=== PATIENT | male | born 1975 | race Caucasian/White ===

== ENCOUNTER 2018-01-04 09:09 | Inpatient (IN) | payer OTHER ==
[~2018-01-04] VITALS: Ht 182.9 cm; Wt 80.7 kg
[2018-01-04 11:00] VITALS: BP 130/70
--- NOTE | 2018-01-04 11:00 | NUR ---
INTAKE ASSESSMENT Patient is alert awake oriented x4. Patient admitted for Cocaine/ETOH(WHISKEY) withdrawal. Patient is main source of information. Vital signs WNL, B/P-130/70,HR-103,RR-18, SPO2-98%TEMP-98.2, PAIN-0/10. Patient reported PMH of Bipolar, anxiety, depression. Patient denies any history of seizures. Patient noted with unsteady gait. Patient brought medications from home. Educated patient with policies of the unit patient verbalized understanding. Will admit patient on the third floor. Will cont to monitor.
--- NOTE | 2018-01-04 11:11 | NUR ---
ADMISSION NOTE ALLERGY-NKA STATUS-FULL CODE HEIGHT-6'0 WEIGHT-178IBS PCP- Malina LYON Patient is 42 yr old male admitted at 11:11am for supervised ETOH(Whiskey)/Cocaine withdrawal. Patient is alert and oriented X4, full code, with NKA. On fall and seizure precaution patient denies any history of seizure, denies SOB, chest pain. Upon arrival skin assessment done and skin noted intact. Patient refused to "cough and squat". Patient is very intoxicated upon admission and unable to stand still. Patient escorted to the unit via wheel chair. Patient reports history of anxiety, depression, bipolar and he is taking Braddock 600mg PO at night and Latuda in the morning. Per patient last used [facility] yesterday. Patient is able to respond to questions, cooperative during the admission interview but patient has very poor eye contact. Denies suicidal or homicidal ideation at this time.Patient states family history of depression, and his mother use to drink alcohol. Patient refused PNA vaccine. Patient denies any history of surgeries. Patient reports that common withdrawal symptoms include ,anxiety, agitation, restless, body aches, N/V, Hot cold sweats. Patient denies any history of overdose. Patient states that he has been seeking treatment because it is affecting his health. Patient states he was in [facility] 1 week ago and has been in and out of [facility] for 3 years. Patient states his longest period of sobriety was 5 months which was last year. Patient reported there is no specific trigger. Patient states that he is ready to focus on recovery and open to 12 steps program. Substance use history per patient report: 1) ETOH(WHISKEY) - Patient reports last drink was Whiskey 750mL PO today at 0700 . Patient states he has been drinking 750ml daily for 3 years . Patient reports he started using 10 years ago 2) COCAINE - Patient reports last used was today one "8 ball" snort daily for 3 years. Pt. reports he started using 10 years ago. Educated patient about plan of care including detox, group therapy and discharge planning. Encourage patient to be open honest and verbalized support for patient in his recovery. Due to unsteady gait patient placed on 1:1 for safety. Encourage patient to notify staff with any concerns. Patient was oriented to unit, room and call lights, oriented to unit routines and activity groups, and provided with hygiene supplies. Patient has been educated about plan of care and case management, as well as unit protocols. Safety measures in place, side rails up x2 bed locked in low position, call light within reach. Will cont to monitor.
[2018-01-04] MEDS ORDERED: LURA40TA PO (11:56)
[2018-01-04] MEDS ORDERED: OXYM30SP22 NS (11:56)
[2018-01-04] MEDS ORDERED: LITH300T3 PO (11:56)
[2018-01-04 13:00] VITALS: BP 128/74
[2018-01-04] MEDS ORDERED: ONDANSETRON 4 MG/2 ML VIAL IM PRN (15:00)
[2018-01-04] MEDS ORDERED: MIRALAX 17 GM POWD.PACK PO PRN (15:00)
[2018-01-04] MEDS ORDERED: MAG HYDROX/AL HYDROX/SIMETH 30 ML LIQUID UDC PO PRN (15:00)
[2018-01-04] MEDS ORDERED: ACETAMINOPHEN 325 MG TABLET PO PRN (15:00)
[2018-01-04] MEDS ORDERED: THIAMINE HCL 200 MG/2 ML VIAL IM ONE (15:00)
[2018-01-04] MEDS ORDERED: ONDANSETRON ODT 4 MG TAB.RAPDIS SL PRN (15:00)
[2018-01-04] MEDS ORDERED: MAGNESIUM HYDROXIDE 30 ML LIQUID UDC PO PRN (15:00)
[2018-01-04] MEDS ORDERED: IBUPROFEN 400 MG TABLET PO PRN (15:00)
[2018-01-04] MEDS ORDERED: LOPERAMIDE HCL 2 MG CAPSULE PO PRN ×2 (15:00)
[2018-01-04] MEDS ORDERED: LORAZEPAM 2 MG/1 ML VIAL IM PRN (15:00)
[2018-01-04] MEDS ORDERED: LORAZEPAM 1 MG TABLET PO PRN (15:00)
[2018-01-04] MEDS: LITHIUM CARBONATE 300 MG CAPSULE PO SCH ×2 (16:27→20:38)
[2018-01-04 16:41] LABS: *AMPHETAMINE, URINE POSITIVE (NEGATIVE); *BARBITURATE, URINE NEGATIVE (NEGATIVE); *CANNABINOID, URINE NEGATIVE (NEGATIVE); *COCCAINE, URINE POSITIVE (NEGATIVE); *OPIATE, URINE NEGATIVE (NEGATIVE); *PHENCYCLIDINE SCREEN,URINE NEGATIVE (NEGATIVE)
[2018-01-04 16:58] LABS: BASOPHILS % (AUTO) 0.4 % (0.0-2.0); EOSINOPHILS % (AUTO) 9.6 % (0.0-7.0); HEMATOCRIT 40.3 % (36.7-47.1); HEMOGLOBIN 13.7 g/dL (12.5-16.3); LYMPHOCYTES # (AUTO) 2.7 K/uL (20.0-40.0); MEAN CORPUSCULAR HEMOGLOBIN 31.3 uug (23.8-33.4); MEAN CORPUSCULAR HGB CONC 34 g/dL (32.5-36.3); MEAN CORPUSCULAR VOLUME 92.3 fL (73.0-96.2); MONOCYTES # (AUTO) 1.1 K/uL (2.0-10.0); MONOCYTES % (AUTO) 10.9 % (0.0-11.0); NEUTROPHILS # (AUTO) 5.4 K/uL (1.8-8.9); NEUTROPHILS % (AUTO) 53.1 % (38.5-71.5); PLATELET COUNT (AUTO) 304 K/uL (152-348); RED BLOOD CELL COUNT(AUTO) 4.37 MIL/uL (4.06-5.63); WHITE BLOOD COUNT (AUTO) 10.2 K/uL (3.6-10.2)
[2018-01-04 17:00] VITALS: BP 112/63
[2018-01-04 17:15] LABS: ETHANOL < 3 MG/DL (0-0)
[2018-01-04 17:18] LABS: ALANINE AMINOTRANSFERASE 36 U/L (16-63); ALKALINE PHOSPHATASE 77 U/L (50-136); AMYLASE 56 U/L (25-115); ASPARTATE AMINOTRANSFERASE 19 U/L (15-37); BILIRUBIN,TOTAL 0.3 mg/dL (0.2-1.0); CARBON DIOXIDE 33 mmol/L (21-32); CHLORIDE 101 mmol/L (98-107); CREATININE 1.5 mg/dL (0.6-1.3); GLUCOSE 142 mg/dL (74-106); LIPASE 135 U/L (73-393); MAGNESIUM 2.2 mg/dL (1.8-2.4); TOTAL PROTEIN, SERUM 6.9 g/dL (6.4-8.2); UREA NITROGEN, BLOOD 11 mg/dL (7-18)
--- NOTE | 2018-01-04 18:50 | NUR ---
1:1 DISCONTINUE Patient able to cough and squat and also noted with steady gait. 1:1 discontinued. Patient is alert awake oriented and states "I am walking fine i don't need anyone by my bed side". notified.
--- NOTE | 2018-01-04 18:54 | NUR ---
END OF SHIFT NOTE Patient is 42 year old male admitted at 11:11am for supervised alcohol Cocaine withdrawal. Patient is alert and oriented X4, full code, with NKA. On fall and seizure precaution (no history of seizure). Patient reported PMH of anxiety, depression, bipolar. Denies SOB, chest pain, skin is intact. No PRN'S were given during shift. Patient rested in his room most of the shift. Encourage PO fluids as tolerated. Patient able to consumed all of his meals. All safety measures in place, call light within reach. Patient endorsed to night nurse in stable condition.
--- NOTE | 2018-01-04 19:55 | NUR ---
START OF SHIFT NOTE Rcvd report from outgoing nurse, pt is currently in his room. Pt is a 42 y/o male A/O to person, place, time, and purpose. Pt was admitted for medically supervised withdrawal ETOH. Pt's last drink was this morning. Pt c/o of being tired. Pt presenting w/ lethragy, depressed and withdrawn mood, and flat affect. Pt denies any S/I and H/I. Pt rcvd no PRN medicatiosn during previous shift. Last CIWA 4 @ 1600. Call light is within reach. Pt will continue to be monitored and needs met.
[2018-01-04 20:00] VITALS: BP 119/69
[2018-01-04] MEDS: diphenhydrAMINE 50 MG CAPSULE PO PRN (20:38)
[2018-01-04] MEDS: LORAZEPAM 1 MG TABLET PO PRN (20:38)
--- NOTE | 2018-01-04 20:38 | NUR ---
PRN ATIVAN AND BENADRYL ADMINISTRATION Ativan 2mg given for increased anxiety, CIWA 5. Benadryl 50mg given for sleep. Will reassess pt in 1 hr.
--- NOTE | 2018-01-04 21:38 | NUR ---
PRN ATIVAN AND BENADRYL REASSESSMENT Pt is in bed w/ his eyes closed. Pt's respirations are even and unlabored.
--- NOTE | 2018-01-05 | NUR ---
CIWA DEFERRED AND V/S REFUSED Pt is in bed w/ his eyes closed. Pt's respirations are unlabored and even.
--- NOTE | 2018-01-05 04:00 | NUR ---
RENETTA AND COWS DEFERRED Pt is in bed w/ his eyes closed. Pt's respirations are unlabored and even. Addendum: 01/05/18 at 0459 by VICTORINO ARGUETA RN CIWA DEFERRED ONLY
[2018-01-05 07:08] LABS: HEPATITIS B SURFACE AG Negative (Negative)
--- NOTE | 2018-01-05 07:25 | NUR ---
END OF SHIFT NOTE Endorsed pt to oncoming nurse, pt is currently in his room. Pt is a 42 y/o male A/O to person, place, time, and purpose. Pt was admitted for medically supervised withdrawal ETOH. Pt was moderately intoxicated at start of shift. Pt c/o of being tired. Pt presenting w/ lethragy, depressed and withdrawn mood, and flat affect. Pt denies any S/I and H/I. PRN Ativan 2mg and Benadryl given for anixety (CIWA >5) and insomnia, noted effective. Pt's fluid intake was 1091ml and he voided 2 times. Pt slept for 7 hrs. Last CIWA 5 @ 2029. Call light is within reach.
[2018-01-05 08:00] VITALS: BP 97/60
--- NOTE | 2018-01-05 08:05 | NUR ---
START OF SHIFT: Received Pt a/o x 4. He presents with guarded affect and anxious mood. He states he needs his tweezers to manually remove debris from inside his nose due to his cocaine use.He expressed frustration about not having access to his belongings. RENETTA 9. Ativan 1 mg PO PRN given to manage s/s of w/d. He reports anxiety,irritability and restlessness. Will monitor effectiveness of PRN medication. Encouraged increased fluids to assist in facilitating detox process.will continue to monitor and offer support.
[2018-01-05] MEDS: THIAMINE HCL 100 MG TABLET PO SCH (08:51)
[2018-01-05] MEDS: FOLIC ACID 1 MG TABLET PO SCH (08:51)
[2018-01-05] MEDS: MULTIVITAMINS,THERAPEUTIC TABLET PO SCH (08:51)
[2018-01-05] MEDS: LITHIUM CARBONATE 300 MG CAPSULE PO SCH ×2 (08:51→21:00)
[2018-01-05] MEDS ORDERED: TUBERCULIN,PURIF.PROT.DERIV. 5 TU/0.1 ML TEST ID ONE (09:00)
--- NOTE | 2018-01-05 09:05 | NUR ---
PRN Ativan effective. CIWA 6. Pt is laying in bed and states " I feel a little better". Will continue to monitor and offer support.
[2018-01-05] MEDS: LORAZEPAM 1 MG TABLET PO PRN ×2 (09:12→18:46)
[2018-01-05 12:00] VITALS: BP 112/60
[2018-01-05 16:00] VITALS: BP 102/64
[2018-01-05] MEDS ORDERED: LORAZEPAM 1 MG TABLET PO PRN (18:45)
--- NOTE | 2018-01-05 18:45 | NUR ---
PRN Ativan 1 mg given for CIWA 5. He c/o anxiety ,agitation and irritability. He is emotional. Will endorse effectiveness to merchandise adjustment clerk nurse.
--- NOTE | 2018-01-05 19:04 | NUR ---
END OF SHIFT: Pt continues on PRN Ativan for s/s of w/d . He presents with blunted affect and depressed mood. He spent most of shift in bed and slept on and off. He was given Ativan 1mg po this AM and was effective. He was given Ativan 1mg po at 1845 for CIWA 5. endorsed reassessment of CIWA to oncoming cnc machinist 2nd shift nurse. PPD planted to [facility]. Pt denies S/I and H/i. He was compliant with increased fluids and medications. Will pass shift report to oncoming night nurse.
--- NOTE | 2018-01-05 19:06 | NUR ---
Start of shift note Received report from day shift nurse. Pt is a 42 yo male, A+Ox4, presenting to [facility] for ETOH/Cocaine withdrawal. Pt noted with agitation, restlessness, and anxiety. Pt has HX of Anxiety, depression, and bipolar which will be monitored during shift. Pt is on PRN medications, tolerated well. Respirations even and unlabored. Will continue to monitor.
[2018-01-05 20:10] VITALS: BP 138/74
[2018-01-06 00:12] VITALS: BP 114/79
[2018-01-06 04:13] VITALS: BP 118/75
--- NOTE | 2018-01-06 07:00 | NUR ---
End of shift note Pt was continuously noted with anxiety, depression, agitation, and restlessness. Pt remained in room for majority of shift except to get food from kitchen. Pt remained compliant and cooperative with all aspects of treatment. Pt was not given any PRN medications during shift. Pt is on PRN medications. Pt slept for a total of 9 HRS. Last CIWA: 6 @0400. Respirations even and unlabored. Will endorse to day shift nurse.
--- NOTE | 2018-01-06 07:50 | NUR ---
BEGINNING OF SHIFT Patient endorsement report received from night stocker nurse, all pertinent information was discussed. Patient is a 42 year old male admitted on 01/04/2018 with admitting Dx: etoh withdrawal. Patient currently with no ongoing taper, but has PRN medications available for any s/sx of withdrawal. Patient continues under close observation. patients fall and seizure precautions are in place. Per night stocker patient received no PRN medications. Patient with last ciwa score of: 6. Patient slept for 9 hours. Patient received awake, alert and oriented x4. Patient educated regarding plan of care for the day and medication regimen with good verbal understanding. will continue to monitor closely. safety measures are in place. call light with in reach.
[2018-01-06 08:11] VITALS: BP 120/66
[2018-01-06] MEDS: FOLIC ACID 1 MG TABLET PO SCH (08:31)
[2018-01-06] MEDS: THIAMINE HCL 100 MG TABLET PO SCH (08:31)
[2018-01-06] MEDS: LITHIUM CARBONATE 300 MG CAPSULE PO SCH ×2 (08:31→20:09)
[2018-01-06] MEDS: MULTIVITAMINS,THERAPEUTIC TABLET PO SCH (08:31)
[2018-01-06] MEDS: LORAZEPAM 1 MG TABLET PO PRN (08:32)
--- NOTE | 2018-01-06 08:32 | NUR ---
PRN ATIVAN Patient presented with: tremors, sweats, anxiety and agitation, with ciwa score of: 7. Patients vital signs WNL. Patient was administered Ativan 1 mg PO as ordered for s/sx of withdrawal. Will monitor closely. safety measures are in place. call light kept with in reach. will continue to monitor closely.
--- NOTE | 2018-01-06 09:32 | NUR ---
ATIVAN REASSESSMENT Medication effective, patient reports less anxiety and less agitation, current ciwa score of: 5, will continue to monitor closely. safety measures are in place.
[2018-01-06 13:55] VITALS: BP 103/60
[2018-01-06 16:54] VITALS: BP 116/79
--- NOTE | 2018-01-06 17:48 | NUR ---
PRN MOTRIN Patient c/o generalized body aches 6/10 administered motrin as ordered, will monitor effectiveness of mediation. safety measures are in place.
[2018-01-06] MEDS: HYDROXYZINE PAMOATE 25 MG CAPSULE PO PRN (18:37)
--- NOTE | 2018-01-06 18:37 | NUR ---
PRN VISTARIL Patient reports increase anxiety, provided with non pharmacological interventions with no relief, administered Vistaril 25mg PO as ordered for anxiety, will endorse to shift manager nurse to f/u on effectiveness of medication.
--- NOTE | 2018-01-06 18:48 | NUR ---
MOTRIN REASSESSMENT Patient reports medication effective, current pain level 0/10, will continue to monitor closely.
--- NOTE | 2018-01-06 19:03 | NUR ---
END OF SHIFT Patient alert and oriented x4. patient with admitting Dx: etoh withdrawal. Patient currently with no ongoing taper. Patient did receive PRN medication for s/sx of withdrawal x1 dose during shift. Patient is scheduled to be discharged tomorrow morning, noted self motivated towards sobriety. Patient presented with avoidant eye contact, has ssad and worried facial expression, flat affect. Patient received PRN: Motrin, effective one hour post administration and received PRN Vistaril, endorsed to table games shift manager nurse to f/u on effectiveness of medication. Patient encouraged to develop coping skills and utilization of non pharmacological interventions as needed. During shift patient presented with: tremors that can be felt, barely sweating, anxiety and agitation, initial ciwa score of: 7, last ciwa score of: 5. Patient compliant with plan of care. patients vital signs WNL during shift.
--- NOTE | 2018-01-06 19:15 | NUR ---
Start of Shift Note: Patient is a 42 y.o male admitted on 01/04/18 for medically supervised withdrawal from ETOH. Patient is alert & oriented x4. Patient has a flat affect, has anxious & depressed mood. He denies pain/discomfort at this time. No hallucinations note at this time. Skin is warm & dry. Patient currently has no ongoing taper and he is under close observation. He is scheduled to be discharge tomorrow and pt verbalized readiness to be discharge. Last CIWA is 5 at day shift Pt received PRN Ativan, Motrin and Vistaril during day shift and was effective per report. Continue to encourage pt to increase fluid intake for hydration. Educated patient of current plan of care for the night and medication regimen. Safety precaution in place. Bed locked in lowest position. Both side rails up. Call light within pt's reach. Will continue to monitor patient.
[2018-01-06 20:00] VITALS: BP 133/85
[2018-01-06] MEDS: diphenhydrAMINE 50 MG CAPSULE PO PRN (20:10)
--- NOTE | 2018-01-06 20:10 | NUR ---
PRN Benadryl Patient complains of inability to fall asleep and is requesting for medication to help her sleep. PRN Benadryl administered as ordered. Will continue to monitor patient.
--- NOTE | 2018-01-06 21:10 | NUR ---
PRN Reassessment Patient still awake at this time. PRN Benadryl not effective at this time. Pt laying in bed and appears comfortable. Will continue to monitor patient.
[2018-01-06] MEDS ORDERED: THIA100T13 PO (22:30)
[2018-01-06] MEDS ORDERED: DIPH50CA37 PO (22:30)
[2018-01-06] MEDS ORDERED: FOLI1TAB16 PO (22:30)
[2018-01-06] MEDS ORDERED: ACET325T53 PO (22:30)
[2018-01-06] MEDS ORDERED: IBUP-1953 PO (22:30)
[2018-01-06] MEDS ORDERED: HYDR-3895 PO (22:30)
[2018-01-06] MEDS ORDERED: MULT-24 PO (22:30)
[2018-01-06] MEDS ORDERED: HYDROXYZINE PAMOATE 25 MG CAPSULE PO ONE (23:45)
[2018-01-07] VITALS: BP 129/82
[2018-01-07] MEDS ORDERED: TRAZODONE 50 MG TABLET PO ONE (01:00)
[2018-01-07] MEDS: HYDROXYZINE PAMOATE 25 MG CAPSULE PO PRN ×2 (01:01→09:10)
--- NOTE | 2018-01-07 01:01 | NUR ---
PRN Vistaril Patient complained of anxiety and inability to fall asleep. Dr. Denson was on the unit with new orders to give a one time dose of Trazodone 50mg. Orders noted and carried out. Administered Trazodone 50 mg PO and PRN Vistaril to patient as ordered. Safety measures in place. Will monitor for effectiveness of medication.
--- NOTE | 2018-01-07 02:01 | NUR ---
PRN Reassessment Patient verbalized decreased in anxiety after 1 hour of PRN administration. Patient laying in bed and appears drowsy. Safety measures in place. Will continue to monitor patient.
--- NOTE | 2018-01-07 07:05 | NUR ---
End of Shift Note: Patient is a 42 y.o male admitted for ETOH withdrawals. Pt remains alert & oriented x4. He is scheduled to be discharge today. He continues to present with anxiety & agitation. Pt received PRN Vistaril for anxiety and Benadryl for sleep. One time orders of Vistaril & Trazodone were ordered per MD. Last CIWA is 6. He intermittently slept for a total of 4 hours. Pt remained stable throughout my shift. Vitals remained WNL. Continued to encourage pt to increase fluid intake. Fluid intake 1210 ml, Voided 1x with no bowel movement. All needs attended. Safety measures in place. Will endorse pt to day shift nurse.
--- NOTE | 2018-01-07 07:20 | NUR ---
BEGINNING OF SHIFT Patient endorsement report received from operation shift supervisor nurse, all pertinent information was discussed. Patient is a 42 year old male admitted on 01/04/2018 with admitting Dx: ETOH withdrawal. Patient is scheduled to be discharged this morning, will educate patient regarding all discharge instructions. As per operation shift supervisor. shift patient with poor sleeping pattern, slept for 4 hours intermittently. patients fall and seizure precautions are in place. Per operation shift supervisor patient received PRN: Vistaril, Benadryl and Trazodone. Patient with last ciwa score of:6. Patient received awake, alert and oriented x4, educated regarding plan of care for the day and medication regimen. will continue to monitor closely. safety measures are in place. call light with in reach.
[2018-01-07 08:24] VITALS: BP 107/73
[2018-01-07] MEDS: MULTIVITAMINS,THERAPEUTIC TABLET PO SCH (09:10)
[2018-01-07] MEDS: FOLIC ACID 1 MG TABLET PO SCH (09:10)
[2018-01-07] MEDS: THIAMINE HCL 100 MG TABLET PO SCH (09:10)
[2018-01-07] MEDS: LITHIUM CARBONATE 300 MG CAPSULE PO SCH (09:10)
--- NOTE | 2018-01-07 09:32 | NUR ---
DISCHARGE Patient discharged off the unit at 0932, prior to discharge patient was educated and provided with teaching regarding all discharge instructions with good verbal understanding. Patient noted self motivated towards sobriety. vital signs WNL. patient with last ciwa score of: 5. Patients home medications, prescriptions, and discharge instructions were all placed in patients personal duffel bag. patient off the unit in stable condition at 0932.
== END 2018-01-07 09:32 | disposition home or self-care (01) | DRG 895 ==
LOC: SRC 10:45
PROVIDERS: ADMIT Family Medicine Addiction Medicine; ATTEND Family Medicine Addiction Medicine
PROC: HZ2ZZZZ Detoxification Services for Substance Abuse Treatment (ICD-10-PCS; principal; 2018-01-04)
PROC: HZ51ZZZ Individual Psychotherapy for Substance Abuse Treatment, Behavioral (ICD-10-PCS; 2018-01-06)
DX: F10.230 Alcohol dependence with withdrawal, uncomplicated (principal); F14.20 Cocaine dependence, uncomplicated; Y90.9 Presence of alcohol in blood, level not specified; Z79.899 Other long term (current) drug therapy; F31.9 Bipolar disorder, unspecified; F17.210 Nicotine dependence, cigarettes, uncomplicated; Z81.1 Family history of alcohol abuse and dependence; F41.9 Anxiety disorder, unspecified
CPT/HCPCS: 36415; 80307; 80324; 80353; 83690; 83735; 85025; 86580; 86592; 86705; 86803; 87340; 87806; A4663; G0480; J3411; Q0163